=== PATIENT | female | born 2000 | race Two or more races ===

== ENCOUNTER 2024-07-16 19:56 | Observation (INO) | payer MEDICAID ==
[2024-07-16 21:41] LABS: Vaginal Trichomonas Not Present
[2024-07-16 21:42] LABS: Vaginal Bacteria Few; Vaginal Clue Cells None Seen; Vaginal Epithelial Cells Few
[2024-07-16 21:52] LABS: Fern Testing Negative
--- NOTE | 2024-07-16 22:34 | DVHDS2 ---
Physician Discharge Progress N Final Diagnosis: early labor Operations or Procedures: Operations or Procedures S: 23yo IUP@40.1wks presents to OB triage with c/o UCs q15 minutes and un sure if she is leaking fluid or just has vaginal discharge, denies large gush of fluid. Denies VB/TAVARES/vision changes/RUQ pain. Endorses +FM. PNC with Jagruti Urbina CNM at [facility] [place], critical [facility] hospital. O: VSS UA wnl NST reactive (FHR 140, moderate variability, +accels, -decels) TOCO q10 min SVE 4/50/-3 by CNM initially, SVE by RN unchanged after 1 hour of ambulating SSE by RN: negative nitrazine and pooling Laboratory Tests Test 07/16/24 21:00 Range/Units Amniotic Fluid Ferning Test Negative Vaginal WBC (Wet Prep) None seen Vaginal RBC (Wet Prep) None seen Vaginal Epithelial Cells (Wet Prep) Few Vaginal Bacteria (Wet Prep) Few Vaginal Trichomonas (Wet Prep) Not present Vaginal Yeast (Wet Prep) None seen Vaginal Clue Cells (Wet Prep) None seen A: 23yo IUP@40.1wks Early Labor P: kick counts and Preeclampsia warning signs reviewed. Labor precautions given and when to return to the hospital. Condition on Discharge: Stable Disposition: Home Discharge Instructions: Diet: Regular Activity: No Restrictions, As Tolerated Medications: see med list Follow Up Care: Specialist: f/u with primary OB provider as scheduled Discharge Statement: "Patient was advised to return to the ER or call 911 if any headaches, dizziness, shortness of breath, chest pain, abdominal pain, bleeding, fevers, or worsening of medical condition. Patient was counseled about treatment plan, medications, possible side effects, patientverbalized understanding. All questions were answered to the best of my ability. This discharge took greater then 30 minutes in planning, reviewing documentation, counseling the patient, and discussing with other team members." ALLEN HITCHCOCK CNM Jul 16, 2024 22:34
== END 2024-07-16 22:28 | disposition home or self-care (01) ==
LOC: LDRP 19:56
PROVIDERS: ADMIT Obstetrics & Gynecology; ATTEND Obstetrics & Gynecology
DX: O60.03 Preterm labor without delivery, third trimester (principal); O26.893 Other specified pregnancy related conditions, third trimester; N89.8 Other specified noninflammatory disorders of vagina; Z3A.40 40 weeks gestation of pregnancy
CPT/HCPCS: 59025; 81002; 87210; 94760; G0378; Q0114

== ENCOUNTER 2024-07-17 03:31 | Observation (INO) | payer MEDICAID ==
[~2024-07-17] VITALS: Ht 157.5 cm; Wt 81.6 kg
[2024-07-17 05:12] LABS: Basophils # (auto) 0 10 ^3/uL (0-0.2); Basophils % (auto) 0.2 % (0.0-2.0); Eosinophils # (auto) 0.1 10 ^3/uL (0-0.8); Lymphocytes # (auto) 3.3 10 ^3/uL (0.4-5.4); Red Blood Cells 4.45 10^6/uL (4.0-5.20); Red Cell Distribution Width 16.8 % (11.8-14.3)
[2024-07-17 05:15] LABS: Eosinophils % (auto) 0.9 % (0.0-7.0); Hematocrit 35.4 % (36.0-46.0); Hemoglobin 11.3 g/dL (12.2-16.2); Lymphocytes % (auto) 28.7 % (10.0-50.0); Mean Corpuscular Hemoglobin 25.5 pg (28.0-32.0); Mean Corpuscular Volume 79.6 fL (80.0-100.0); Monocytes # (auto) 0.8 10 ^3/uL (0-1.3); Monocytes % (auto) 7.3 % (0.0-12.0); Neutrophils # (auto) 7.3 10 ^3/uL (1.6-8.6); Neutrophils % (auto) 62.9 % (37.0-80.0); Nucleated Red Blood Cells % 0.1 %; Platelet Count (auto) 381 10^3/uL (140-450); White Blood Cell 11.6 10^3/uL (4.4-10.8)
[2024-07-17 05:23] LABS: Amphetamine Screen, Urine Neg (NEGATIVE); Barbiturate Scree,Urine Neg (NEGATIVE); Benzodiazephine Screen, Urine Neg (NEGATIVE); Cannabinoid Screen, Urine Neg (NEGATIVE); Cocaine Screen, Urine Neg (NEGATIVE); Opiate Scree,Urine Neg (NEGATIVE); Phencyclidine Screen, Urine Neg (NEGATIVE)
[2024-07-17 05:26] LABS: INR 0.94 (0.9-1.15); Partial Thromboplastin Time 26.8 SEC (24.5-34.5)
[2024-07-17 05:29] LABS: Urine Bacteria FEW /hpf (None Seen); Urine Blood 3+ /uL (Negative); Urine Clarity Clear (Clear); Urine Color Light-Yellow (Yellow); Urine Mucus FEW (None Seen); Urine Protein, UAD TRACE (Negative); Urine Specific Gravity 1.021 (1.001-1.035); Urine Urobilinogen Normal (Negative); Urine WBC 29 /hpf (0 - 5)
[2024-07-17 05:40] LABS: Alanine Aminotransferase 34 U/L (7-40); Albumin 4.1 g/dL (3.2-4.8); Alkaline Phosphatase 238 U/L (46-116); Anion Gap 9 (5-15); Aspartate Aminotransferase 27 U/L (13-40); BUN/Creatinine Ratio 16.4 (10.0-20.0); Bilirubin, Total 0.3 mg/dL (0.2-1.0); Blood Urea Nitrogen 10 mg/dL (9-23); Calcium 9.1 mg/dL (8.7-10.4); Carbon Dioxide 17 mmol/L (20-31); Chloride 111 mmol/L (98-107); Glucose 90 mg/dL (74-106); Sodium 137 mmol/L (136-145); Total Protein 7.1 g/dL (5.7-8.2)
[2024-07-17] MEDS ORDERED: hydrOXYzine 25 MG TAB or CAP PO ONE (06:30)
--- NOTE | 2024-07-17 07:04 | DVH ---
Examination: OBUS CLINICAL INDICATION: Limited PNC COMPARISON: None. TECHNIQUE: Transabdominal 3rd trimester OB ultrasound was performed. FINDINGS: Real-time ultrasound examination of pelvis shows normal single intra-uterine . P lacenta is posterior in position. cardiac activity and movements are well appreciated. Fetus is in cephalic position. Fetus, kidneys and urinary bladder are seen.TRUMAN: 18.07cm. The various parameters are as follows: BPD 9.81 cm, corresponding to 40weeks 1 day. HC 34.91cm, corresponding to 40 weeks 4 days. AC 35.78 cm, corresponding to 39 weeks 5 days. FL 7.31 cm, corresponding to 37 weeks 3 days. weight: 3772 gm. GIGI: 07/21/2024. heart rate: 136 b/min. Average GA: 39 weeks 3 days. average growth percent: 58.7%. Internal os is closed. Cervical length is adequate. IMPRESSION: Single live intra-uterine . The approximate gestational age is around 39 weeks 3 days. Electronically Signed 07/17/2024 06:55 Aissatou Hdz
--- NOTE | 2024-07-17 10:39 | DVHDS2 ---
Physician Discharge Progress N Final Diagnosis: early labor Operations or Procedures: Operations or Procedures S: 23yo IUP@40.2wks presents to OB triage with c/o UCs q10 minutes and fe els stronger than before. Denies LOF/VB/TAVARES/vision changes/RUQ pain. Endorses +FM. PNC with Jagurti Urbina CNM at [facility] in [place], uncomplicated. O: VSS UA wnl NST reactive (FHR 130, moderate variability, +accels, -decels) TOCO q8-12 min SVE by RN 4.5/50/-3 initially, SVE by RN unchanged after 1 hour of ambulating A: 23yo IUP@40.2wks Early Labor P: D/C home per Dr. Dumont Vistaril 25mg PO once ordered to ease early labor pain Recommended using TENS unit for pain mgmt at home kick counts and Preeclampsia warning signs reviewed. Labor precautions given and when to return to the hospital. Other Interventions Other Interventions [place] [address] Ph: [phone] DIAGNOSTIC IMAGING Diagnostic Imaging Report : [id number] Signed PATIENT: AVELINO ROMAN ACCT: [id number] UNIT: [id number] : 2000 LOC: [facility] ROOM / BED: TRIAGE1 / A AGE / SEX: 23 / F ADM STATUS: ADM IN SERVICE [id number] ORDERING PHYSICIAN: ALLEN HITCHCOCK CNM PROCEDURE(s): OBUS - OB ULTRASOUND COMP GTR 14 WKS REASON: Limited PNC ORDER NUMBER(s): [id number], ACCESSION NUMBER(s): [id number] Examination: OBUS CLINICAL INDICATION: Limited PNC COMPARISON: None. TECHNIQUE: Transabdominal 3rd trimester OB ultrasound was performed. FINDINGS: Real-time ultrasound examination of pelvis shows normal single intra- uterine . Placenta is posterior in position. cardiac activity and movements are well appreciated. Fetus is in cephalic position. Fetus, kidneys and urinary bladder are seen.TRUMAN: 18.07cm. The various parameters are as follows: BPD 9.81 cm, corresponding to 40weeks 1 day. HC 34.91cm, corresponding to 40 weeks 4 days. AC 35.78 cm, corresponding to 39 weeks 5 days. FL 7.31 cm, corresponding to 37 weeks 3 days. weight: 3772 gm. GIGI: 07/21/2024. heart rate: 136 b/min. Average GA: 39 weeks 3 days. average growth percent: 58.7%. Internal os is closed. Cervical length is adequate. IMPRESSION: Single live intra-uterine . The approximate gestational age is around 39 weeks 3 days. Electronically Signed 07/17/2024 06:55 Aissatou Hdz ATED BY: WILDER MAYA MD DICTATED DATE/TIME: 07/17/24654 SIGNED BY: WILDER MAYA MD SIGNED DATE/TIME: 07/17/24654 CC: Condition on Discharge: Stable Disposition: Home Discharge Instructions: Diet: Regular Activity: No Restrictions, As Tolerated Medications: PNV Follow Up Care: Specialist: f/u with primary OB provider as scheduled Discharge Statement: "Patient was advised to return to the ER or call 911 if any headaches, dizziness, shortness of breath, chest pain, abdominal pain, bleeding, fevers, or worsening of medical condition. Patient was counseled about treatment plan, medications, possible side effects, patientverbalized understanding. All questions were answered to the best of my ability. This discharge took greater then 30 minutes in planning, reviewing documentation, counseling the patient, and discussing with other team members." ALLEN HITCHCOCK CNM Jul 17, 2024 10:39
[2024-07-18 07:07] LABS: RPR Non Reactive (Non Reactive)
[2024-07-19 09:07] LABS: Chlamydia Trachomatis, NAA Negative (Negative); Neisseria gonorrhoeae, NAA Negative (Negative)
== END 2024-07-17 07:01 | disposition home or self-care (01) ==
LOC: LDRP 03:31
PROVIDERS: ADMIT Obstetrics & Gynecology; ATTEND Obstetrics & Gynecology
DX: O62.9 Abnormality of forces of labor, unspecified (principal); O34.63 Maternal care for abnormality of vagina, third trimester; N89.8 Other specified noninflammatory disorders of vagina; O09.30 Supervision of pregnancy with insufficient antenatal care, unspecified trimester; O99.333 Smoking (tobacco) complicating pregnancy, third trimester; F17.200 Nicotine dependence, unspecified, uncomplicated; Z3A.40 40 weeks gestation of pregnancy
CPT/HCPCS: 36415; 59025; 76805; 80053; 80307; 81001; 81002; 83036; 85025; 85610; 85730; 86592; 86703; 86803; 86850; 86900; 86901; 87340; 87491; 87591; 94760; G0378